=== PATIENT | female | born 1940 | race Asian ===

== ENCOUNTER 2017-04-07 10:09 | Emergency (ER) | payer MEDICARE, MEDICAID ==
[~2017-04-07] VITALS: Ht 149.9 cm; Wt 50.8 kg
[2017-04-07 10:22] VITALS: BP 168/75; Ht 149.9 cm; Wt 50.8 kg
== END 2017-04-07 11:39 | disposition home or self-care (01) ==
LOC: ED 10:09
DX: J20.8 Acute bronchitis due to other specified organisms (principal)
CPT/HCPCS: Q0092